=== PATIENT | male | born 1995 | race African-American/Black ===

== ENCOUNTER 2016-12-17 15:14 | Emergency (ER) | payer MEDICAID, OTHER ==
[~2016-12-17] VITALS: Ht 182.9 cm; Wt 74.4 kg
[2016-12-17 15:41] VITALS: BP 141/99
== END 2016-12-17 15:57 | disposition home or self-care (01) ==
LOC: ER 15:21
DX: J02.9 Acute pharyngitis, unspecified (principal); F17.210 Nicotine dependence, cigarettes, uncomplicated; F12.10 Cannabis abuse, uncomplicated; Z88.1 Allergy status to other antibiotic agents

== ENCOUNTER 2016-12-29 13:21 | Emergency (ER) | payer MEDICAID ==
[~2016-12-29] VITALS: Ht 180.3 cm; Wt 80.7 kg
[2016-12-29 13:26] VITALS: BP 141/100
[2016-12-29] MEDS ORDERED: cefTRIAXone SOD 1,000 MG VL IM ONE (13:45)
[2016-12-29] MEDS ORDERED: methylPREDNISolone SOD SUCC 125 MG/2 ML VL IM ONE (13:45)
== END 2016-12-29 13:52 | disposition home or self-care (01) ==
LOC: ER 13:24
DX: J03.90 Acute tonsillitis, unspecified (principal); J06.9 Acute upper respiratory infection, unspecified; Z88.1 Allergy status to other antibiotic agents; Z88.8 Allergy status to other drugs, medicaments and biological substances; Z87.891 Personal history of nicotine dependence; F12.10 Cannabis abuse, uncomplicated
CPT/HCPCS: 96372; 99284; J0696; J2930

== ENCOUNTER 2017-03-25 17:31 | Emergency (ER) | payer MEDICAID ==
[~2017-03-25] VITALS: Ht 182.9 cm; Wt 79.4 kg
[2017-03-25 17:40] VITALS: BP 128/82
== END 2017-03-25 23:16 | disposition left against medical advice (07) ==
LOC: ER 17:31
DX: S61.411A Laceration without foreign body of right hand, initial encounter (principal); X58.XXXA Exposure to other specified factors, initial encounter; Y93.89 Activity, other specified; Y99.8 Other external cause status; Y92.830 Public park as the place of occurrence of the external cause; Z53.21 Procedure and treatment not carried out due to patient leaving prior to being seen by health care provider

== ENCOUNTER 2017-07-02 09:06 | Emergency (ER) | payer MEDICAID ==
[~2017-07-02] VITALS: Ht 180.3 cm; Wt 79.4 kg
[2017-07-02 09:20] VITALS: BP 135/71
== END 2017-07-02 09:46 | disposition home or self-care (01) ==
LOC: ER 09:06
DX: K08.89 Other specified disorders of teeth and supporting structures (principal); Z88.1 Allergy status to other antibiotic agents; F17.210 Nicotine dependence, cigarettes, uncomplicated; F12.10 Cannabis abuse, uncomplicated

== ENCOUNTER 2022-11-27 02:43 | Emergency (ER) | payer MEDICAID ==
[~2022-11-27] VITALS: Ht 180.3 cm; Wt 82.6 kg
[2022-11-27 02:59] VITALS: BP 149/104
[2022-11-27] MEDS ORDERED: PRED20TA2 PO (03:20)
[2022-11-27] MEDS ORDERED: AMOX-277 PO (03:20)
[2022-11-27] MEDS ORDERED: DOXY-332 PO (03:35)
== END 2022-11-27 03:52 | disposition home or self-care (01) ==
LOC: ER 02:43
DX: J98.01 Acute bronchospasm (principal); F17.210 Nicotine dependence, cigarettes, uncomplicated; F12.90 Cannabis use, unspecified, uncomplicated; E11.9 Type 2 diabetes mellitus without complications; I10 Essential (primary) hypertension

== ENCOUNTER 2025-11-13 14:36 | Emergency (ER) | payer MEDICAID ==
[~2025-11-13] VITALS: Ht 180.3 cm; Wt 100.0 kg
[~2025-11-13 14:36] MED LIST: DOXY100C79 PO; PRED20TA2 PO
--- NOTE | 2025-11-13 15:04 | ED.PDOC ---
History of Present Illness HPI Comments 30-year-old male is brought in by ambulance for chief complaint of allergic reaction. Patient endorses on developing eye, lips, tongue, and throat swelling, with associated shortness of breath and wheezing and generalized itchiness after drinking almond milk and coffee and eating a rice crispy treat at 1:40 p.m., today. He reports drinking almond milk for the 1st time and developing similar symptoms with his previous allergen Abilify. Denial of any further acute symptoms. Pertinent history of hypertension-noncompliant with his lisinopril prescription. Patient received 0.3 mg of epinephrine IM, 25 mg of Benadryl IV, and one DuoNeb breathing treatment EN route prior to ED arrival. Time Seen by MD: 14:45 Primary Care Provider: JOHANNE Reviewed Notes: Nurses Notes, Packaging Inspector Notes, Medications, Allergies Allergies: Coded Allergies: Amoxicillin (Verified Allergy, Unknown, 12/17/16) Aripiprazole (Verified Allergy, Unknown, 12/29/16) Home Meds Active Scripts Prednisone (Prednisone) 20 Mg Tab, 20 MG PO BID for 5 Days, #10 MG 0 Refills Prov:FILOMENA HEATH MD 11/13/25 Doxycycline (Monohydrate) (Doxycycline) 100 Mg Cap, 100 MG PO BID for 7 Days, #14 CAP 0 Refills Prov:DUSTY GAFFNEY 11/27/22 Information Source: Patient, Emergency Med Personnel Mode of Arrival: EMS Severity: Moderate Timing: Hours Duration: Minutes Prehospital treatment: 12 Lead EKG, Breathing Tx, Lepidopterist, Treatment Past Medical History PAST MEDICAL HISTORY: HTN Surgical History: Denies all surgeries Family History Family History: Unknown Social History Smoker: Cigarettes, Less Than 1 Pack/Day Alcohol: Denies ETOH Use Drugs: Marijuana Lives In: Home Constitutional: denies: chills, diaphoresis, fatigue, fever, malaise, sweats, weakness, others EENTM: reports: mouth swelling, throat swelling, others (Eye swelling, tongue swelling); denies: blurred vision, double vision, ear bleeding, ear discharge, ear drainage, ear pain, ear ringing, eye pain, eye redness, hearing loss, mouth pain, nasal discharge, nose bleeding, nose congestion, nose pain, photophobia, tearing, throat pain, voice changes Respiratory: reports: shortness of breath, wheezing; denies: cough, hemoptysis, orthopnea, SOB at rest, SOB with excertion, stridor, others Cardiovascular: denies: chest pain, dizzy spells, diaphoresis, Dyspnea on exertion, edema, irregular heart beat, left arm pain, lightheadedness, palpitations, PND, syncope, others Gastrointestinal: denies: abdomen distended, abdominal pain, blood streaked bowels, constipated, diarrhea, dysphagia, difficulty swallowing, hematemesis, me robb, nausea, poor appetite, poor fluid intake, rectal bleeding, rectal pain, vomiting, others Genitourinary: denies: burning, dysuria, flank pain, frequency, hematuria, incontinence, penile discharge, penile sore, pain, testicle pain, testicle swelling, urgency, others Neurological: denies: dizziness, fainting, headache, left sided numbness, left sided weakness, numbness, paresthesia, pre-existing deficit, right sided numbness, right sided weakness, seizure, speech problems, tingling, tremors, weakness, others Musculoskeletal: denies: back pain, gout, joint pain, joint swelling, muscle pain, muscle stiffness, neck pain, others Integumetry: denies: bruises, change in color, change in hair/nails, dryness, laceration, lesions, lumps, rash, wounds, others Allergic/Immunocompromised: denies: Difficulty Healing, Frequent Infections, Hives, Itching, others Hematologic/Lymphatic: denies: anemia, blood clots, easy bleeding, easy bruising, swollen glands, others Endocrine: denies: excessive hunger, excessive sweating, excessive thirst, excessive urination, flushing, intolerance to cold, intolerance to heat, unexplained weight gain, unexplained weight loss, others Psychiatric: denies: anxiety, bipolar disorder, depression, hopeless, panic disorder, schizophrenia, sleepless, suicidal, others Physical Exam General Appearance: No Apparent Distress HEENT: Pharynx Normal, TMs Normal, Other (Mildly thickened tongue) Neck: Full Range of Motion, Non-Tender, Normal, Normal Inspection Respiratory: Chest Non-Tender, Lungs Clear, No Accessory Muscle Use, No Respiratory Distress, Normal Breath Sounds Cardiovascular: No Edema, No JVD, No Murmur, No Gallop, Normal Peripheral Pulses, Regular Rate/Rhythm Breast Exam: Deferred Gastrointestinal: No Organomegaly, Non Tender, No Pulsatile Mass, Normal Bowel Sounds, Soft Genitalia: Deferred Pelvic: Deferred Rectal: Deferred Extremities: No calf tenderness, Normal capillary refill, Normal inspection, Normal range of motion, Non-tender, No pedal edema Musculoskeletal : Apperance: Normal Neurologic: Alert, field director II-XII nml as Tested, No Motor Deficits, Normal Affect, Normal Mood, No Sensory Deficits Cerebellar Function: Normal Reflexes: Normal Skin: Dry, Normal Color, Warm Lymphatic: No Adenopathy Was a procedure done? Was a procedure done?: No Differential Dx Considerations may include: Anaphylaxis, angioedema, hypoxia, urticaria, exposure to new possible allergen X-Ray, Labs, Meds, VS Vital Signs Date Time Temp Pulse Resp B/P (MAP) Pulse Ox O2 Delivery O2 Flow Rate FiO2 11/13/25 14:36 98.2 112 28 170/93 98 98.2 Current Medications Medications (Trade) Dose Ordered Sig/Bar[place] Route Start Time Stop Time Status Last Admin Sodium Chloride 1,000 ml @ 1,000 mls/hr Q1H ONCE IV 11/13/25 15:00 11/13/25 15:59 DC 11/13/25 16:58 Methylprednisolone Sodium Succinate (Solu Medrol) 125 mg ONCE ONCE IV 11/13/25 15:00 11/13/25 15:01 DC 11/13/25 16:57 The patient was given Solu-Medrol 125 mg IV push The patient was given 1 L bolus of normal saline The patient is being discharged at this time The patient was given a prescription of prednisone The patient understands and agrees with the management Time of 1ST Reevaluation: 15:30 Reevaluation 1ST: Unchanged Patient Education/Counseling: Diagnosis, Treatment, Prognosis, Need For Follow Up Family Education/Counseling: No Family Present SEPSIS Sepsis Screen Physician Orders Heplock Iv (11/13/25 14:59) Lepidopterist (11/13/25 14:59) Blood Pressure (11/13/25 14:59) Pulse Oximetry (11/13/25 14:59) Vital Signs Date Time Temp Pulse Resp B/P (MAP) Pulse Ox O2 Delivery O2 Flow Rate FiO2 11/13/25 14:36 98.2 112 28 170/93 98 98.2 Medications Medications Dose Ordered Sig/Barrington Route Start Time Stop Time Status Last Admin Dose Admin Methylprednisolone Sodium Succinate 125 mg ONCE ONCE IV 11/13/25 15:00 11/13/25 15:01 DC 11/13/25 16:57 Sodium Chloride 1,000 ml @ 1,000 mls/hr Q1H ONCE IV 11/13/25 15:00 11/13/25 15:59 DC 11/13/25 16:58 Departure 1 Departure Time of Disposition: 17:25 Impression: Primary Impression: Acute allergic reaction Qualified Codes: T78.40XA - Allergy, unspecified, initial encounter Disposition: HOME / SELF CARE / HOMELESS Condition: Fair e-Prescriptions Prednisone (Prednisone) 20 Mg Tab 20 MG PO BID for 5 Days, #10 MG 0 Refills Prov: FILOMENA HEATH MD 11/13/25 Discharged With: Self Critical Care Note Critical Care Time?: No Stability Stability form required: No Heart Score Heart Score: Heart Score Response (Comments) Value History N/A 0 EKG N/A 0 Age N/A 0 Risk Factors N/A 0 Troponin N/A 0 Total 0 I personally scribed for FILOMENA HEATH MD ([email or web address]) on 11/13/25 at 15:04. Electronically submitted by Pancho James ([email or web address]). I personally scribed for FILOMENA HEATH MD ([email or web address]) on 11/13/25 at 15:05. Electronically submitted by Pancho James ([email or web address]). FILOMENA HEATH MD Nov 13, 2025 15:04
[2025-11-13] MEDS ORDERED: PRED20TA2 PO (16:50)
[2025-11-13] MEDS: methylPREDNISolone SOD SUCC 125 MG/2 ML VL IV ONE (16:57)
[2025-11-13] MEDS: SODIUM CHLORIDE 0.9% 1,000 ML IV ONE (16:58)
[2025-11-13 19:20] VITALS: BP 149/95; PULSE 108; RESP 20; TEMP 97.9; O2SAT 95
== END 2025-11-13 19:34 | disposition home or self-care (01) ==
LOC: ER 14:36 → EDBD 14:36 → ER 19:30
DX: R22.9 Localized swelling, mass and lump, unspecified (principal); T78.40XA Allergy, unspecified, initial encounter; Z88.0 Allergy status to penicillin; F17.210 Nicotine dependence, cigarettes, uncomplicated; I10 Essential (primary) hypertension; X58.XXXA Exposure to other specified factors, initial encounter
CPT/HCPCS: 96361; 96374; 99285; J2919; J7030